=== PATIENT | female | born 2000 | race Caucasian/White ===

== ENCOUNTER 2025-08-14 02:52 | Emergency (ER) | payer MEDICAID, SELFPAY ==
[2025-08-14 02:58] VITALS: BP 158/73; PULSE 84; RESP 20; O2SAT 97
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
[2025-08-14 04:28] VITALS: BP 148/68; PULSE 80; RESP 16; O2SAT 98
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
== END 2025-08-14 04:30 | disposition home or self-care (01) ==
LOC: ER 04:33
PROVIDERS: Emergency Provider Emergency Medicine; PCP Neuromusculoskeletal Medicine & OMM
DX: R58 Hemorrhage, not elsewhere classified (principal); T71.193A Asphyxiation due to mechanical threat to breathing due to other causes, assault, initial encounter
CPT/HCPCS: 99283 ×2; 71046